=== PATIENT | male | born 1985 | race American Indian/Alaskan Native ===

== ENCOUNTER 2020-03-06 13:14 | Emergency (ER) | payer OTHER ==
--- NOTE | 2020-03-06 13:48 | Emergency Department Report ---
Blank Doc - Documentation Documentation: 34-year-old male that presents with dizziness and fatigue w/ hx of anemia. This initial assessment/diagnostic orders/clinical plan/treatment(s) is/are subject to change based on patient's health status, clinical progression and re- assessment by fellow clinical providers in the ED. Further treatment and workup at subsequent clinical providers discretion. Patient/guardians urged not to elope from the ED as their condition may be serious if not clinically assessed and managed. Initial orders include: 1- Patient sent to [facility] for further evaluation and treatment 2- labs 3- orthostatic
[2020-03-06 14:45] LABS: Basophils # (Auto) 0.2 K/mm3 (0.0-0.1); Basophils % (Auto) 2.7 % (0.0-1.8); Eosinophils # (Auto) 0.3 K/mm3 (0.0-0.4); Eosinophils % (Auto) 3.2 % (0.0-4.3); Hematocrit 37.8 % (35.5-45.6); Lymphocytes # (Auto) 2.1 K/mm3 (1.2-5.4); Lymphocytes % (Auto) 25.9 % (13.4-35.0); Mean Corpuscular HGB Conc 35 % (32-34); Mean Corpuscular Volume 78 fl (84-94); Monocytes # (Auto) 0.9 K/mm3 (0.0-0.8); Monocytes % (Auto) 11.6 % (0.0-7.3); Platelet Count 209 K/mm3 (140-440); Red Blood Count 4.85 M/mm3 (3.65-5.03); Red Cell Distribution Width 18.1 % (13.2-15.2)
[2020-03-06 15:03] LABS: BUN/Creatinine Ratio 13; Blood Urea Nitrogen 13 mg/dL (9-20); Calcium 9.4 mg/dL (8.4-10.2); Hemolysis Index 26
--- NOTE | 2020-03-06 16:21 | Emergency Department Report ---
ED Dizziness HPI - General Chief Complaint: Dizziness Stated Complaint: FATIGUE/DIZZY Time Seen by Provider: 03/06/20 13:47 Source: patient Mode of arrival: Ambulatory Limitations: No Limitations - History of Present Illness Initial Comments: The patient was evaluated in the emergency department for symptoms described in the history of present illness. He/she was evaluated in the context of the global COVID-19 pandemic, which necessitated consideration that the patient might be at risk for infection with the virus that causes COVID-19. Institution al protocols and algorithms that pertain to the evaluation of patients at risk for COVID-19 are in a state of rapid change based on information released by regulatory bodies including the CDC and federal and state organizations. These policies and algorithms were followed during the patient's care in the emergency department. Please note that these policies, procedures and recommendations changed on a rapid basis. 34-year-old male presents to the emergency room stating that he has had some fatigue and dizziness x1 day. Patient states that it feels like the room is spinning. He does admit to a recent URI. He denies any chest pain no shortness of breath no dysuria no increased urine. He reports he is eating well and drinking well but has not eaten today. Patient reports he has a history of sickle cell trait and anemia. Patient states that he just feels disoriented. Patient works for [employer] and has a heavy work schedule. Denies any trauma no headache. MD Complaint: dizziness Onset/Timin -: days(s) Timing: gradual onset Description: "room spinning" History of Same: No History of Trauma: No Severity: moderate Improves With: nothing Worsens With: movement, position Associated Symptoms: ataxia, other (Fatigue). denies: chest pain, cough, diaphoresis, fever/chills, loss of appetite, shortness of breath, syncope, weakness - Related Data Previous Rx's Medication Instructions Recorded Last Taken Type Fluticasone [Flonase] 1 spray NS QDAY #1 bottle 03/06/20 Unknown Rx Meclizine [Antivert] 25 mg PO TID PRN #21 tablet 03/06/20 Unknown Rx Oxymetazoline 0.05% [Vicks Sinex] 1 spray NS Q12H PRN #1 bottle 03/06/20 Unknown Rx Allergies Allergy/AdvReac Type Severity Reaction Status Date / Time No Known Allergies Allergy Unverified 03/06/20 13:53 ED Review of Systems ROS: Stated complaint: FATIGUE/DIZZY Other details as noted in HPI Comment: All other systems reviewed and negative ED Past Medical Hx - Past Medical History Previous Medical History?: Yes - Social History Smoking Status: Never Smoker Substance Use Type: None - Medications Home Medications: Home Medications Medication Instructions Recorded Confirmed Last Taken Type Fluticasone [Flonase] 1 spray NS QDAY #1 bottle 03/06/20 Unknown Rx Meclizine [Antivert] 25 mg PO TID PRN #21 tablet 03/06/20 Unknown Rx Oxymetazoline 0.05% [Vicks Sinex] 1 spray NS Q12H PRN #1 bottle 03/06/20 Unknown Rx ED Physical Exam - General Limitations: No Limitations General appearance: alert, in no apparent distress - Head Head exam: Present: atraumatic, normocephalic - Eye Eye exam: Present: normal appearance - ENT ENT exam: Present: mucous membranes moist - Neck Neck exam: Present: normal inspection, full ROM - Respiratory Respiratory exam: Present: normal lung sounds bilaterally. Absent: respiratory distress - Cardiovascular Cardiovascular Exam: Present: regular rate, normal rhythm. Absent: systolic murmur, diastolic murmur, rubs, gallop - GI/Abdominal GI/Abdominal exam: Present: soft. Absent: distended, tenderness - Extremities Exam Extremities exam: Present: full ROM - Back Exam Back exam: Present: normal inspection, full ROM - Neurological Exam Neurological exam: Present: alert, oriented X3, abnormal gait - Expanded Neurological Exam Expanded Cranial nerves: EOM's Intact: Normal, Gag Reflex: Normal, Tongue Deviation: Normal Cerebellar function: Finger to Nose: Normal, Heel to Moore: Normal, Romberg: Normal Upper motor neuron: Jose Neglect: Normal, Pronator Drift: Normal, Babinski Sign: Normal, Sensory Extinction: Normal Sensory exam: Upper Extremity Light Touch: Normal, Upper Extremity Pin Prick: Normal, Upper Extremity Temperature: Normal, UE 2 Point Discrimination: Normal, Lower Extremity Light Touch: Normal, Lower Extremity Pin Prick: Normal, Lower Extremity Temperature: Normal, LE 2 Point Discrimination: Normal Motor strength exam: RUE: 4, LUE: 4, RLE: 4, LLE: 4 Best Eye Response (Gena): (4) open spontaneously Best Motor Response (Homer): (6) obeys commands Best Verbal Response (Homer): (5) oriented Homer Total: 15 ED Course Vital Signs 03/06/20 13:50 Temperature 98.3 F Pulse Rate 67 Respiratory 18 Rate Blood Pressure 142/56 O2 Sat by Pulse 97 Oximetry ED Medical Decision Making - Lab Data Result diagrams: 03/06/20 14:10 03/06/20 14:10 - Radiology Data Radiology results: report reviewed [facility] [address] [place] [address] Cat Scan Report Signed Patient: SHIMON CANADA MR#: [id number] : 1985 Acct:[id number] Age/Sex: 34 / M ADM Date: 03/06/20 Loc: ED Attending Dr: Ordering Physician: VANDA OLIVER Date of Service: 03/06/20 Procedure(s): CT head/brain wo con Accession Number(s): [id number] cc: VANDA OLIVER CT head/brain wo con INDICATION / CLINICAL INFORMATION: 34 years Male; Dizziness with ataxia. TECHNIQUE: Routine CT head without contrast. All CT scans at this location are performed using CT dose reduction for ALARA by means of automated exposure control. COMPARISON: None. FINDINGS: BRAIN / INTRACRANIAL CONTENTS: No acute hemorrhage, mass effect, midline shift, hydrocephalus, or acute, large territorial infarct. No signs of significant atrophy or chronic infarct. No significant white matter abnormality seen. CRANIOCERVICAL JUNCTION: No significant abnormality. ORBITS: No significant abnormality of visualized orbits. SINUSES / MASTOIDS: No significant abnormality in the visualized paranasal sinuses or mastoid air cells. ADDITIONAL FINDINGS: Prominent soft tissue is seen in the roof the nasopharynx, presumably related to reactive adenoidal tissue. Please clinically correlate. IMPRESSION: 1. No focal mass, hemorrhage, hydrocephalus, or acute, large territorial infarct. Signer Name: Martin Epstein MD, III Signed: 03/06/2020 4:44 PM Workstation Name: [id number] Transcribed By: HR Dictated By: Martin Epstein MD Electronically Authenticated By: Martin Epstein MD Signed Date/Time: 03/06/201643 DD/ 41 TD/TT: - Medical Decision Making 34-year-old male presents to the emergency room stating that he has had some fatigue and dizziness x1 day. Patient states that it feels like the room is spinning. He does admit to a recent URI. He denies any chest pain no sh ortness of breath no dysuria no increased urine. He reports he is eating well and drinking well but has not eaten today. Patient reports he has a history of sickle cell trait and anemia. Patient states that he just feels disoriented. Patient works for [employer] and has a heavy work schedule. Denies any trauma no headache. CT of brain is negative for any masses or infarcts does show that there is inflammation of prominent soft tissue is seen in the roof the nasopharynx, presumably related to reactive adenoidal tissue. Patient was diagnosed with vertigo. Will recommend patient to take meclizine and use Flonase nasal spray as well as Afrin for 3 days. Patient is to follow-up with the stitching machine feeder or offbearer. Critical care attestation.: If time is entered above; I have spent that time in minutes in the direct care of this critically ill patient, excluding procedure time. ED Disposition Clinical Impression: Vertigo Disposition: DC-01 TO HOME OR SELFCARE Is pt being admited?: No Does the pt Need Aspirin: No Condition: Stable Instructions: Vertigo (ED) Additional Instructions: CT scans negative for any abnormalities. It does show that you have some infl ammation to your nasopharynx. I am diagnosing you with vertigo and like for you to take the antihistamine and use the nasal spray as prescribed only use the oxymetazoline for 3 days. Follow-up with the stitching machine feeder or offbearer. Prescriptions: Meclizine [Antivert] 25 mg PO TID PRN #21 tablet PRN Reason: Vertigo Fluticasone [Flonase] 1 spray NS QDAY #1 bottle Oxymetazoline 0.05% [Vicks Sinex] 1 spray NS Q12H PRN #1 bottle PRN Reason: Allergy Symptoms Referrals: KARINA AMAYA MD [Staff Physician] - 3-5 Days Forms: Work/School Release Form(ED)
--- NOTE | 2020-03-06 16:49 | Cat Scan Report ---
CT head/brain wo con INDICATION / CLINICAL INFORMATION: 34 years Male; Dizziness with ataxia. TECHNIQUE: Routine CT head without contrast. All CT scans at this location are performed using CT dos e reduction for ALARA by means of automated exposure control. COMPARISON: None. FINDINGS: BRAIN / INTRACRANIAL CONTENTS: No acute hemorrhage, mass effect, midline shift, hydrocephalus, or acu te, large territorial infarct. No signs of significant atrophy or chronic infarct. No significant whi te matter abnormality seen. CRANIOCERVICAL JUNCTION: No significant abnormality. ORBITS: No significant abnormality of visualized orbits. SINUSES / MASTOIDS: No significant abnormality in the visualized paranasal sinuses or mastoid air wily ls. ADDITIONAL FINDINGS: Prominent soft tissue is seen in the roof the nasopharynx, presumably related to reactive adenoidal tissue. Please clinically correlate. IMPRESSION: 1. No focal mass, hemorrhage, hydrocephalus, or acute, large territorial infarct. Signer Name: Martin Epstein MD, III Signed: 03/06/2020 4:44 PM Workstation Name: [id number]
[2020-03-06 17:47] VITALS: BP 98/78
== END 2020-03-06 17:12 | disposition home or self-care (01) ==
LOC: ED 13:14
DX: R42 Dizziness and giddiness (principal); D57.1 Sickle-cell disease without crisis; Z79.899 Other long term (current) drug therapy
CPT/HCPCS: 36415; 70450; 80048; 85025

== ENCOUNTER 2020-03-28 15:40 | Emergency (ER) | payer OTHER ==
--- NOTE | 2020-03-28 16:00 | Event Note ---
ED Screening Note Date of service: 03/28/20 Time: 16:00 ED Screening Note: Patient with history of sickle cell disease with crisis pain in the left arm and right thigh very typical for his crisis pain. This initial assessment/diagnostic orders/clinical plan/treatment(s) is/are subject to change based on patients health status, clinical progression and re- assessment by fellow clinical providers in the ED. Further treatment and workup at subsequent clinical providers discretion. Patient/guardian urged not to elope from the ED as their condition may be serious if not clinically assessed and managed. Initial orders include: CBC, CMP, PT, INR, reticulocyte count and sickle cell protocol
[2020-03-28 16:45] LABS: Basophils % (Auto) 0.2 % (0.0-1.8); Eosinophils % (Auto) 0.2 % (0.0-4.3); Hematocrit 38.3 % (35.5-45.6); Lymphocytes # (Auto) 1.8 K/mm3 (1.2-5.4); Lymphocytes % (Auto) 10.4 % (13.4-35.0); Mean Corpuscular HGB Conc 34 % (32-34); Mean Corpuscular Volume 78 fl (84-94); Monocytes # (Auto) 1.3 K/mm3 (0.0-0.8); Monocytes % (Auto) 7.7 % (0.0-7.3); Red Cell Distribution Width 17.8 % (13.2-15.2)
[2020-03-28 16:47] LABS: Platelet Count 196 K/mm3 (140-440)
[2020-03-28 17:00] LABS: Alanine Aminotransferase 23 units/L (7-56); Albumin 4.8 g/dL (3.9-5); BUN/Creatinine Ratio 11; Blood Urea Nitrogen 11 mg/dL (9-20); Calcium 9.3 mg/dL (8.4-10.2); Hemolysis Index 18
[2020-03-28] MEDS ORDERED: D5W/0.2% NACL 1,000 ML IV SCH (17:00)
[2020-03-28] MEDS ORDERED: MORPHINE 2 MG/1 ML INJ IV ONE (22:32)
[2020-03-28] MEDS ORDERED: KETOROLAC 30 MG/1 ML INJ IV ONE (22:32)
[2020-03-28] MEDS ORDERED: diphenhydrAMINE 50 MG/ML VIAL IV ONE (22:32)
[2020-03-28] MEDS ORDERED: ONDANSETRON 4 MG/2 ML INJ IV ONE (22:32)
--- NOTE | 2020-03-28 22:51 | Emergency Department Report ---
ED General Adult HPI - General Chief complaint: Sickle Cell Crisis Stated complaint: SICKEL CELL PAIN Time Seen by Provider: 03/28/20 22:24 Source: patient Mode of arrival: Ambulatory Limitations: No Limitations - History of Present Illness Initial comments: 34-year-old male with a past medical history of sickle cell SC presents to the hospital complaining of pain crisis since this a.m. He complains of pain to left arm and right leg. Patient states he has not had a sickle cell crisis in at least 10 years since relocating here from [facility]. Pain is rated 10/10 in intensity, constant, without aggravating or alleviating factors. He took 1 aspirin without relief. Recently he was diagnosed with asthma and vertigo and saw the ENT physician. On March 25 he was prescribed prednisone and gabapentin which she is currently taking. He denies fever, shortness of breath, chest pain, cough, or fever. Severity scale (0 -10): 10 - Related Data Home Medications Medication Instructions Recorded Confirmed Last Taken Gabapentin 300 mg PO DAILY 03/28/20 03/28/20 03/27/20 predniSONE 20 mg PO TID 03/28/20 03/28/20 03/28/20 Previous Rx's Medication Instructions Recorded Last Taken Type HYDROcodone/APAP 5-325 [[place] 1 each PO Q4HR PRN #20 tablet 03/29/20 Unknown Rx 5/325] Ibuprofen [Motrin] 800 mg PO Q8HR PRN #30 tablet 03/29/20 Unknown Rx Allergies Allergy/AdvReac Type Severity Reaction Status Date / Time No Known Allergies Allergy Unverified 03/06/20 13:53 ED Review of Systems ROS: Stated complaint: SICKEL CELL PAIN Other details as noted in HPI Comment: All other systems reviewed and negative ED Past Medical Hx - Past Medical History Previous Medical History?: Yes Hx Sickle Cell Disease: Yes (SC) - Social History Smoking Status: Never Smoker Substance Use Type: None - Medications Home Medications: Home Medications Medication Instructions Recorded Confirmed Last Taken Type Gabapentin 300 mg PO DAILY 03/28/20 03/28/20 03/27/20 History predniSONE 20 mg PO TID 03/28/20 03/28/20 03/28/20 History HYDROcodone/APAP 5-325 [[place] 1 each PO Q4HR PRN #20 tablet 03/29/20 Unknown Rx 5/325] Ibuprofen [Motrin] 800 mg PO Q8HR PRN #30 tablet 03/29/20 Unknown Rx ED Physical Exam - General Limitations: No Limitations - Other Other exam information: General: No acute distress Head: Atraumatic Eyes: normal appearance ENT: Moist mucous membranes Neck: Normal appearance, no midline tenderness Chest: Clear to auscultation bilaterally CV: Regular rate and rhythm Abdomen: Soft, normal bowel sounds, nontender, nondistended, no rebound or guarding Back: Normal inspection Extremity: Normal inspection, full range of motion, no calf tenderness, leg edema, tenderness to palpation of extremities or with movement. No warmth, erythema, or swelling to extremities Neuro: Alert O x 3, no facial asymmetry, speech clear, no gross motor sensory deficit Psych: Appropriate behavior Skin: No rash ED Course Vital Signs 03/28/20 22:23 Temperature 99.6 F Pulse Rate 65 Respiratory 16 Rate Blood Pressure 134/44 [Right] O2 Sat by Pulse 100 Oximetry - Reevaluation(s) Reevaluation #1: 03/29/20 00:37 After initial round of meds patient states his pain went down from a 10/10 in intensity to a 7/10. He states his right leg is pain-free and he has persistent residual pain in his left arm. Additional morphine ordered. ED Medical Decision Making - Lab Data Result diagrams: 03/28/20 16:19 03/28/20 16:19 Lab Results 03/28/20 03/28/20 Range/Units 16:19 16:19 WBC 17.4 H (4.5-11.0) K/mm3 RBC 4.90 (3.65-5.03) M/mm3 Hgb 13.0 (11.8-15.2) gm/dl Hct 38.3 (35.5-45.6) % MCV 78 L (84-94) fl MCH 27 L (28-32) pg MCHC 34 (32-34) % RDW 17.8 H (13.2-15.2) % Plt Count 196 (140-440) K/mm3 Lymph % (Auto) 10.4 L (13.4-35.0) % [place] % (Auto) 7.7 H (0.0-7.3) % Eos % (Auto) 0.2 (0.0-4.3) % Baso % (Auto) 0.2 (0.0-1.8) % Lymph # (Auto) 1.8 (1.2-5.4) K/mm3 [place] # (Auto) 1.3 H (0.0-0.8) K/mm3 Eos # (Auto) 0.0 (0.0-0.4) K/mm3 Baso # (Auto) 0.0 (0.0-0.1) K/mm3 Seg Neutrophils % 81.5 H (40.0-70.0) % Seg Neutrophils # 14.2 H (1.8-7.7) K/mm3 Percent Retic 4.29 H (0.78-2.58) % Sodium 137 (137-145) mmol/L Potassium 4.7 (3.6-5.0) mmol/L Chloride 100.7 (98-107) mmol/L Carbon Dioxide 26 (22-30) mmol/L Anion Gap 15 mmol/L BUN 11 (9-20) mg/dL Creatinine 1.0 (0.8-1.3) mg/dL Estimated GFR > 60 ml/min BUN/Creatinine Ratio 11 % Glucose 146 H (75-100) mg/dL Calcium 9.3 (8.4-10.2) mg/dL Total Bilirubin 0.90 (0.1-1.2) mg/dL AST 25 (5-40) units/L ALT 23 (7-56) units/L Alkaline Phosphatase 94 (35-129) units/L Total Protein 8.5 H (6.3-8.2) g/dL Albumin 4.8 (3.9-5) g/dL Albumin/Globulin Ratio 1.3 % - Medical Decision Making Patient presents to the hospital sickle cell crisis. No signs of anemia. Elevated reticulocyte count noted. Leukocytosis noted which could be secondary to sickle cell crisis or prednisone use. Patient does not endorse infectious symptoms at this time. Patient received pain relief with ED treatment for sickle cell crisis and will be discharged. Patient did receive narcotics and Benadryl during ED stay and states he will not be driving home upon discharge. He was told that he should not drive after receiving these medications Critical Care Time: No Critical care attestation.: If time is entered above; I have spent that time in minutes in the direct care of this critically ill patient, excluding procedure time. ED Disposition Clinical Impression: Sickle cell crisis Disposition: DC-01 TO HOME OR SELFCARE Is pt being admited?: No Does the pt Need Aspirin: No Condition: Stable Instructions: Sickle Cell Anemia, Pediatric Additional Instructions: Take the medication as prescribed. Follow-up with your doctor or doctor/clinic provided. Return if symptoms worsen as indicated by your discharge instructions. Please note you were provided discharge instructions for sickle cell anemia in the pediatric patient because adult patient sickle cell discharge instructions are not available at this time in our computer system. Please come back if symptoms worsen as indicated by your instructions Prescriptions: Ibuprofen [Motrin] 800 mg PO Q8HR PRN #30 tablet PRN Reason: Pain , Severe (7-10) HYDROcodone/APAP 5-325 [[place] 5/325] 1 each PO Q4HR PRN #20 tablet PRN Reason: Pain , Severe (7-10) Referrals: KOFI KOTHARI DO [Staff Physician] - 3-[address] [facility] [Provider Group] - 3-5 Days Time of Disposition: 02:35
[2020-03-29] MEDS ORDERED: MORPHINE 4 MG/1 ML INJ IV ONE (00:36)
[2020-03-29 03:46] VITALS: BP 135/46
== END 2020-03-29 03:47 | disposition home or self-care (01) ==
LOC: ED 15:40
DX: D57.818 Other sickle-cell disorders with crisis with other specified complication (principal); Z79.899 Other long term (current) drug therapy
CPT/HCPCS: 36415; 80053; 85025; 85045; 96361; 96374; 96375; 96376; 99283; J1200; J1885; J2270; J2405

== ENCOUNTER 2020-03-30 | Emergency (ER) | payer OTHER ==
[2020-03-30] MEDS ORDERED: ASPIRIN 325 MG TAB PO ONE (00:17)
--- NOTE | 2020-03-30 00:50 | XRay Report ---
CHEST 1 VIEW INDICATION: Chest Pain. Sickle cell crisis. COMPARISON: None. FINDINGS: Support devices: None. Heart: Normal. Lungs/Pleura: No acute pulmonary or pleural findings. IMPRESSION: 1. No acute findings. Signer Name: Cr Alford MD Signed: 03/30/2020 12:46 AM Workstation Name: [id number]
[2020-03-30 01:21] LABS: Basophils % (Auto) 0.2 % (0.0-1.8); Eosinophils % (Auto) 0.1 % (0.0-4.3); Hematocrit 38.1 % (35.5-45.6); Hemoglobin 12.8 gm/dl (11.8-15.2); Lymphocytes # (Auto) 3.8 K/mm3 (1.2-5.4); Lymphocytes % (Auto) 20.9 % (13.4-35.0); Mean Corpuscular HGB Conc 34 % (32-34); Mean Corpuscular Volume 78 fl (84-94); Monocytes # (Auto) 2.2 K/mm3 (0.0-0.8); Monocytes % (Auto) 12.2 % (0.0-7.3); Red Blood Count 4.91 M/mm3 (3.65-5.03)
[2020-03-30 01:40] LABS: BUN/Creatinine Ratio 13; Blood Urea Nitrogen 14 mg/dL (9-20); Calcium 9.3 mg/dL (8.4-10.2); Hemolysis Index 14; Platelet Count 208 K/mm3 (140-440)
[2020-03-30] MEDS ORDERED: MORPHINE 2 MG/1 ML INJ IV ONE ×2 (03:06→05:24)
[2020-03-30] MEDS ORDERED: ONDANSETRON 4 MG/2 ML INJ IV ONE (03:06)
[2020-03-30] MEDS ORDERED: KETOROLAC 30 MG/1 ML INJ IV ONE (03:06)
[2020-03-30] MEDS ORDERED: SODIUM CHLORIDE 0.9% 1000 ML 1,000 ML IV ONE (03:06)
[2020-03-30 04:08] LABS: INR 0.95 (0.87-1.13)
[2020-03-30 04:09] LABS: Partial Thromboplastin Time 26.2 Sec. (24.2-36.6)
[2020-03-30 04:21] VITALS: BP 123/67
--- NOTE | 2020-03-30 04:54 | Emergency Department Report ---
ED General Adult HPI - General Chief complaint: Sickle Cell Crisis Stated complaint: MEDICAL COMPLAINT Time Seen by Provider: 03/30/20 02:28 Source: patient Mode of arrival: Ambulatory Limitations: No Limitations - History of Present Illness Initial comments: 34-year-old male, history of sickle cell disease (SC type), presents to ED with pain crisis. Patient was seen on yesterday reported having pain to the left arm and right leg. After some IV fluids and pain medication here in the ED patient states he left feeling much better. He was discharged with prescription for pain medication. Patient reports his extremity pain returned along with now having chest pain. States it feels like a burning sensation across his chest. He denies any fever, cough, shortness of breath, nausea or vomiting, diaphoresis. -: days(s) (2) Location: chest, left, right, upper extremity, lower extremity Severity scale (0 -10): 10 Quality: burning, aching Consistency: constant Improves with: none Worsens with: none Associated Symptoms: chest pain. denies: cough, fever/chills, nausea/vomiting, shortness of breath - Related Data Home Medications Medication Instructions Recorded Confirmed Last Taken Gabapentin 300 mg PO DAILY 03/28/20 03/28/20 03/27/20 predniSONE 20 mg PO TID 03/28/20 03/28/20 03/28/20 Previous Rx's Medication Instructions Recorded Last Taken Type HYDROcodone/APAP 5-325 [[place] 1 each PO Q4HR PRN #20 tablet 03/29/20 Unknown Rx 5/325] Ibuprofen [Motrin] 800 mg PO Q8HR PRN #30 tablet 03/29/20 Unknown Rx Allergies Allergy/AdvReac Type Severity Reaction Status Date / Time No Known Allergies Allergy Unverified 03/06/20 13:53 ED Review of Systems ROS: Stated complaint: MEDICAL COMPLAINT Other details as noted in HPI Comment: All other systems reviewed and negative Constitutional: denies: chills, fever Respiratory: denies: cough, shortness of breath Cardiovascular: chest pain Musculoskeletal: arthralgia ED Past Medical Hx - Past Medical History Hx Sickle Cell Disease: Yes - Social History Smoking Status: Never Smoker Substance Use Type: None - Medications Home Medications: Home Medications Medication Instructions Recorded Confirmed Last Taken Type Gabapentin 300 mg PO DAILY 11/23/20 11/23/20 11/22/20 History predniSONE 20 mg PO TID 03/28/20 03/28/20 03/28/20 History HYDROcodone/APAP 5-325 [[place] 1 each PO Q4HR PRN #20 tablet 03/29/20 Unknown Rx 5/325] Ibuprofen [Motrin] 800 mg PO Q8HR PRN #30 tablet 03/29/20 Unknown Rx ED Physical Exam - General Limitations: No Limitations General appearance: alert, in no apparent distress - Head Head exam: Present: atraumatic, normocephalic - Eye Eye exam: Present: normal appearance, EOMI - ENT ENT exam: Present: mucous membranes moist - Neck Neck exam: Present: normal inspection - Respiratory Respiratory exam: Present: normal lung sounds bilaterally. Absent: respiratory distress - Cardiovascular Cardiovascular Exam: Present: regular rate, normal rhythm - GI/Abdominal GI/Abdominal exam: Present: soft. Absent: distended, tenderness - Extremities Exam Extremities exam: Present: normal inspection. Absent: pedal edema, calf tenderness - Neurological Exam Neurological exam: Present: alert, oriented X3 - Psychiatric Psychiatric exam: Present: normal affect, normal mood - Skin Skin exam: Present: warm, dry, intact, normal color. Absent: rash ED Course Vital Signs 03/30/20 03/30/20 03/30/20 00:14 01:21 02:01 Temperature 99.1 F Pulse Rate 71 Respiratory 18 Rate Blood Pressure 132/40 139/78 110/60 O2 Sat by Pulse 100 97 Oximetry 03/30/20 03/30/20 03:01 04:00 Temperature Pulse Rate Respiratory Rate Blood Pressure 120/85 123/67 O2 Sat by Pulse 97 95 Oximetry ED Medical Decision Making - Lab Data Result diagrams: 03/30/20 00:47 03/30/20 00:47 - EKG Data -: EKG Interpreted by Nv EKG shows normal: sinus rhythm, axis, intervals, QRS complexes, ST-T waves Rate: normal - EKG Data Interpretation: no acute changes - Radiology Data Radiology results: report reviewed, image reviewed - Medical Decision Making 34-year-old male with history of sickle cell disease (SC) presents to ED with complaint of pain crisis. Patient seen on yesterday for same, complaining of pain in his left arm and right leg. Today patient states he is still having extremity pain but now has some substernal chest pain. EKG is unremarkable. Troponin is negative x2. Chest x-ray is normal, no infiltrates. CTA was obtained to rule out PE, and CTA of the chest is unremarkable. Labs show WBCs of 18, hemoglobin of 12.8 and retic count of 4.5. This is mostly unchanged compared to yesterday. Received 2 doses of morphine, along with IV fluids and Toradol. He is feeling much better at this time. Patient advised to follow-up with fast food restaurant manager. Patient received prescription for Percocet on yesterday. Will not prescribe any further medications today. Will discharge at this time. Return precautions given. - Differential Diagnosis Sickle cell crisis, ACS, PE, acute chest Critical care attestation.: If time is entered above; I have spent that time in minutes in the direct care of this critically ill patient, excluding procedure time. ED Disposition Clinical Impression: Sickle cell crisis, Chest pain Disposition: - TO HOME OR SELFCARE Is pt being admited?: No Condition: Stable Instructions: Chest Pain (ED), Nonspecific Chest Pain, Adult, [id number], Hemolytic Anemia Referrals: PRIMARY CARE, [Primary Care Provider] - 3-5 Days KOFI KOTHARI DO [Staff Physician] - 3-5 Days Time of Disposition: 05:26
--- NOTE | 2020-03-30 05:14 | Cat Scan Report ---
CTA CHEST WITH IV CONTRAST INDICATION: Chest pain, elev D-dimer, Sickle Cell Crisis. TECHNIQUE: Axial CT images were obtained through the chest after injection of IV contrast. 3 plane MIP reconstru ctions were produced. All CT scans at this location are performed using CT dose reduction for ALARA b y means of automated exposure control. COMPARISON: None available. FINDINGS: Pulmonary Arteries: No pulmonary emboli. Thoracic Aorta: No acute abnormality. Heart: Heart size is upper limits of normal. Lungs: No acute air space or interstitial disease. Pleura: No pleural effusion. No pneumothorax. Lymph Nodes: No significant adenopathy. Additional Findings: None. Upper Abdomen: No acute findings. Skeletal Structures: No significant osseous abnormality. IMPRESSION: 1. No CT evidence for pulmonary embolism. 2. No acute findings. Signer Name: Cr Alford MD Signed: 03/30/2020 5:10 AM Workstation Name: [id number]
== END 2020-03-30 06:30 | disposition home or self-care (01) ==
LOC: ED
DX: D57.00 Hb-SS disease with crisis, unspecified (principal); R07.9 Chest pain, unspecified; Z79.1 Long term (current) use of non-steroidal anti-inflammatories (NSAID); Z79.899 Other long term (current) drug therapy
CPT/HCPCS: 36415; 71045; 71275; 80048; 84484; 85025; 85045; 85379; 85610; 85730; 93005; 96361; 96374; 96375; 96376; 99285; J1885; J2270; J2405; J7030; Q9967